=== PATIENT | female | born 1995 | race Caucasian/White ===

== ENCOUNTER 2018-03-06 16:44 | Outpatient (CLI) | payer OTHER ==
[2018-03-06 17:01] VITALS: BP 119/67
--- NOTE | 2018-03-06 20:43 | HISTORY & PHYSICAL EXAMINATION ---
DATE OF SERVICE: 03/06/2018 Physician: Terry Dang MD PATIENT IDENTIFICATION: Patient is a 22-year-old G1, P0, female whose EDC is 28 March. This was determined by early visits and ultrasound. This makes her 36.6 weeks EGA. CHIEF COMPLAINT: Fall x2. HISTORY OF PRESENT ILLNESS: Patient, at 6:30 this morning, fell on her knees in the garage. She felt this was a soft fall. At this time, she notes good motion. Denied any bleeding or cramping subsequent to this. However, this afternoon at 1545, while walking the dogs, she was struck and fell on her back and left-hand side. She states that this knocked the wind out of her. However, she denies any contractions, did have some headaches and nausea. Denied any pain of the uterus or bleeding. The patient is A positive. At that point she called Labor and Delivery at the and was talked to there and then proceeded to come here. OBSTETRIC HISTORY: OB care started at 9 weeks and has had regular visits. She has had good weight gain, and she is noted to be GBS negative, her Glucola was 66, she is rubella immune, and her blood type is A positive. PAST MEDICAL HISTORY: Patient denies any hypertensive, diabetic, cardiac, or pulmonary disease. PAST SURGICAL HISTORY: None. ALLERGIES: NONE KNOWN. CURRENT MEDICATIONS: vitamins. HABITS: The patient denies use of alcohol, tobacco, street or addictive drugs, or THC. SOCIAL HISTORY: The patient is active-[employer]. She is currently dating an individual, and they are in a serious relationship. 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 FAMILY HISTORY: Positive for grandfather with colon cancer. She denies a history of any gynecologic cancer such as breast, ovarian, or cervical. REVIEW OF SYSTEMS: Negative except for some shortness of breath with exertion. PHYSICAL EXAMINATION VITAL SIGNS: Stable. HEENT: Pupils equal, round. Extraocular muscles are intact. CARDIOVASCULAR: Regular rate and rhythm with a grade 1/6 systolic murmur heard best at the second intercostal space. LUNGS: Lung mehta are clear. ABDOMEN: Gravid, nontender throughout. Special attention was paid to the left- hand side. BACK: There is no CVA tenderness. There is some minimal left lower back tenderness. Ultrasound was reviewed, that was done at 20 weeks, and she is noted to have an anterior placenta. IMPRESSION: A 22-year-old G1, P0, at 36.6 weeks with falls x2. She does not appear to have any sequelae at this time. She has a reactive non-stress test. PLAN: I will observe the patient for an hour and half of NST. At this time, I do not believe blood work is necessary. She has been cautioned that should things change, such as bleeding, abdominal pain, or labor, that she should present immediately for evaluation. TD: 03/06/2018 18:23 DEMETRA
== END 2018-03-06 18:30 | disposition home or self-care (01) ==
LOC: WFO 16:44 → FBP 16:47 → WFO 18:30
PROVIDERS: ATTEND Obstetrics & Gynecology
DX: Z03.79 Encounter for other suspected maternal and fetal conditions ruled out (principal)
CPT/HCPCS: 99213

== ENCOUNTER 2018-06-27 19:51 | Emergency (ER) | payer OTHER ==
[2018-06-27] MEDS ORDERED: DEXAMETHASONE 10 MG/ML VIAL PO STA (20:45)
--- NOTE | 2018-06-27 20:47 | ED Physician Documentation ---
PD HPI HEENT - Stated complaint Stated Complaint: CANT HEAR FROM L EAR - Chief complaint Chief Complaint: Heent - History obtained from History obtained from: Patient - History of Present Illness Timing - onset: How many days ago (4) Timing - duration: Days (4) Timing - details: Gradual onset, Still present Location: Left ear Improves: Medication Worsens: Swalllowing Associated symptoms: Congestion, Rhinorrhea, Cough. No: Fever Similar symptoms before: Has not had sx before Recently seen: Not recently seen Review of Systems Constitutional: denies: Fever Eyes: denies: Decreased vision Ears: reports: Loss of hearing, Ear pain Nose: reports: Rhinorrhea / runny nose, Congestion Throat: denies: Sore throat Cardiac: denies: Chest pain / pressure, Palpitations Respiratory: reports: Cough. denies: Dyspnea GI: denies: Vomiting Skin: denies: Rash Musculoskeletal: denies: Neck pain, Back pain, Extremity pain Neurologic: denies: Generalized weakness, Focal weakness PD PAST MEDICAL HISTORY - Past Medical History Past Medical History: No - Past Surgical History Past Surgical History: No - Present Medications Home Medications: Ambulatory Orders Medication Instructions Recorded Confirmed Amox/Clav 875/125 [Augmentin] 1 each PO Q12H #20 tablet 06/27/18 - Allergies Allergies/Adverse Reactions: Allergies Allergy/AdvReac Type Severity Reaction Status Date / Time No Known Drug Allergies Allergy Verified 06/27/18 19:57 - Social History Does the pt smoke?: No Smoking Status: Never smoker Does the pt drink ETOH?: No Does the pt have substance abuse?: No - Immunizations Immunizations are current?: Yes - POLST Patient has POLST: No PD ED PE NORMAL - Vitals Vital signs reviewed: Yes (normal ) - General General: Alert and oriented X 3, No acute distress, Well developed/nourished - HEENT HEENT: Atraumatic, PERRL, EOMI, Pharynx benign, Other (left TM is markedly inflamed with distorted landmarks. The right is less involved. 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, No motor deficit, No sensory deficit, Normal speech Eye Opening: Spontaneous Motor: Obeys Commands Verbal: Oriented GCS Score: 15 - Psych Psych: Normal mood, Normal affect Results - Vitals Vitals: Vital Signs - 24 hr 06/27/18 19:53 Temperature 36.8 C Heart Rate 79 Respiratory 18 Rate Blood Pressure 111/76 O2 Saturation 100 Oxygen O2 Source Room air PD MEDICAL DECISION MAKING - ED course Complexity details: considered differential, d/w patient ED course: 22 y/o female with BOM is administered decadron 10mg po and augmentin 875 Departure - Departure Disposition: Home, Self Care Clinical Impression: Otitis media Qualifiers: Otitis media type: suppurative Chronicity: acute Laterality: bilateral Recurre nce: not specified as recurrent Spontaneous tympanic membrane rupture: without spontaneous rupture Qualified Code(s): H66.003 - Acute suppurative otitis media without spontaneous rupture of ear drum, bilateral Instructions: ED Otitis Media Acute Adult Follow-Up: [facility] [Provider Group] Prescriptions: Amox/Clav 875/125 [Augmentin] 1 each PO Q12H #20 tablet
[2018-06-27] MEDS ORDERED: AMOX/CLAV 875 MG/125 MG TABLET PO STA (20:49)
[2018-06-27 20:59] VITALS: BP 114/63
== END 2018-06-27 21:01 | disposition home or self-care (01) ==
LOC: ED 19:51
DX: H66.003 Acute suppurative otitis media without spontaneous rupture of ear drum, bilateral (principal)
CPT/HCPCS: 99283; A9270